=== PATIENT | female | born 1995 | race Caucasian/White ===

== ENCOUNTER 2024-11-14 08:39 | Emergency (ER) | payer MEDICAID ==
[~2024-11-14] VITALS: Ht 167.6 cm; Wt 70.0 kg
[2024-11-14 08:44] VITALS: TEMP 37.2; O2SAT 100
[2024-11-14 09:41] LABS: HEMATOCRIT. 46.5 % (36.0-48.0); HEMOGLOBIN. 15.8 g/dL (12.0-16.0); MEAN CORPUSCULAR HEMOGLOBIN 29.3 pg (28.0-32.0); MEAN CORPUSCULAR HGB CONC 34.1 g/dL (31.0-37.0); MEAN CORPUSCULAR VOLUME 85.9 fL (81.0-99.0); MEAN PLATELET VOLUME 8.7 fl (7.4-10.4); PLATELET 235 x1000/uL (130-400); RED BLOOD CELL COUNT 5.41 mill/uL (4.2-5.4); RED CELL DISTRIBUTION WIDTH 13.5 % (11.6-14.6); WHITE BLOOD COUNT 14.4 x1000/uL (4.5-11.0)
[2024-11-14 09:48] LABS: DIFFERENTIAL COMMENT 1
[2024-11-14 09:59] LABS: CHLORIDE 109 mEq/L (98-107); POTASSIUM 4.1 mEq/L (3.5-5.1); SODIUM 142 mEq/L (136-145)
[2024-11-14 10:00] LABS: CARBON DIOXIDE 24 mEq/L (21-32)
[2024-11-14 10:01] LABS: CALCIUM 9.1 mg/dL (8.7-10.4)
[2024-11-14 10:02] LABS: HCG SCREEN NEGATIVE
[2024-11-14 10:04] VITALS: BP 118/86; PULSE 72; RESP 16
[2024-11-14] MEDS: IBUPROFEN 600MG TABLET PO STA (10:04)
[2024-11-14 10:05] VITALS: TEMP 98.7
[2024-11-14 10:05] LABS: CREATININE 0.7 mg/dL (0.6-1.0); GLUCOSE 113 mg/dL (70-105)
[2024-11-14] MEDS: ONDANSETRON 4MG ODT PO STA (10:05)
[2024-11-14] MEDS: ACETAMINOPHEN 325MG TABLET PO STA (10:05)
[2024-11-14 10:06] LABS: UREA NITROGEN BLOOD 9 mg/dL (9-23)
[2024-11-14 10:07] LABS: ALANINE AMINOTRANSFERASE 26 IU/L (10-49); ALBUMIN 4.5 g/dL (3.2-4.8); ASPARTATE AMINOTRANSFERASE 18 IU/L (<34); BILIRUBIN DIRECT 0.1 mg/dL (<=3.0)
[2024-11-14 10:08] LABS: BILIRUBIN TOTAL 0.4 mg/dL (0.1-1.0)
[2024-11-14 10:48] LABS: PLATELET ESTIMATE NORMAL
[2024-11-14] MEDS ORDERED: ONDA-239 PO (11:48)
[2024-11-14 11:51] LABS: CLARITY URINE CLOUDY (CLEAR); COLOR URINE YELLOW (YELLOW); GLUCOSE URINE NEGATIVE (NEGATIVE); KETONES URINE NEGATIVE (NEGATIVE); LEUKOCYTE ESTERASE URINE NEGATIVE (NEGATIVE); NITRITE URINE NEGATIVE (NEGATIVE); OCCULT BLOOD URINE 3+ (NEGATIVE); PH URINE 5.5 (4.5-8.0); PROTEIN URINE NEGATIVE (NEGATIVE); SPECIFIC GRAVITY URINE 1.008 (1.005-1.030); UROBILINOGEN URINE 0.2 E.U./dL (0.2-1.0)
[2024-11-14 12:35] LABS: BACTERIA URINE 2+; SQUAMOUS EPITHELIAL CELL URINE 1+ /lpf (RARE/1+); WBC URINE 0-2 /hpf (0-2); YEAST URINE NONE SEEN
== END 2024-11-14 13:30 | disposition home or self-care (01) ==
LOC: ER 08:39
DX: K52.9 Noninfective gastroenteritis and colitis, unspecified (principal); Z90.49 Acquired absence of other specified parts of digestive tract
CPT/HCPCS: 99284; 74176; 80076; 80048; 81003; 84703; 83690; 85025; 36415; Q0162